=== PATIENT | male | born 1955 | race African-American/Black ===

== ENCOUNTER 2022-06-08 15:21 | Inpatient (IN) | payer MEDICARE, MEDICAID ==
[~2022-06-08] VITALS: Ht 170.2 cm; Wt 56.7 kg
[~2022-06-08 15:21] MED LIST: AMLO10TA4 PO; CLOP-31 PO; COR12 PO; ESCI10TA PO; FOLI-43 PO; KEPP500 PO; OMEP40CA PO; PRAV40TA58 PO
[2022-06-08] MEDS ORDERED: MORPHINE SULFATE 4 MG/ML CPJ (NOT FOR IM USE) IV STA (15:39)
[2022-06-08] MEDS ORDERED: ONDANSETRON HCL 4MG/2ML INJ IV STA (15:39)
[2022-06-08] MEDS ORDERED: SODIUM CHLORIDE 0.9% 1,000 ML IV ONE (15:45)
[2022-06-08 16:45] LABS: BASOPHILS % 1.2 % (0.0-2.0); HEMATOCRIT. 27.7 % (42.0-52.0); HEMOGLOBIN. 9.4 g/dL (14.0-18.0); LYMPHOCYTES % 10.3 % (20.0-50.0); MEAN CORPUSCULAR HEMOGLOBIN 31.7 pg (28.0-32.0); MEAN CORPUSCULAR VOLUME 93.9 fL (80.0-94.0); MEAN PLATELET VOLUME 9.3 fl (7.4-10.4); MONOCYTES % 7.7 % (2.0-8.0); NEUTROPHILS % 77.8 % (40.0-76.0); PLATELET 129 x1000/uL (130-400); RED BLOOD CELL COUNT 2.95 mill/uL (4.7-6.1); RED CELL DISTRIBUTION WIDTH 16.3 % (11.6-14.6)
[2022-06-08 16:54] LABS: INR 1.2; PROTHROMBIN TIME 12.7 sec (9.6-11.0)
[2022-06-08 16:56] LABS: CHLORIDE 100 mEq/L (98-107)
[2022-06-08] MEDS ORDERED: NITROGLYCERIN OINT 1GM/INCH UDPKT TD ONE (17:45)
[2022-06-08] MEDS ORDERED: FUROSEMIDE 40MG/4ML VIAL IV ONE (17:45)
[2022-06-08] MEDS ORDERED: NA PHOS,M-B/NA PHOS,DI-BA ENEMA 118ML PR PRN (22:45)
[2022-06-08] MEDS ORDERED: CLONIDINE 0.1MG TABLET PO PRN (22:45)
[2022-06-08] MEDS ORDERED: NITROGLYCERIN 0.4MG TABLET SL SL PRN (22:45)
[2022-06-08] MEDS ORDERED: MAGNESIUM/ALUMINUM HYDROXIDE/SIMETHICONE 30ML UDC PO PRN (22:45)
[2022-06-08] MEDS ORDERED: ACETAMINOPHEN 325MG TABLET PO PRN ×2 (22:45)
[2022-06-08] MEDS ORDERED: IPRATROPIUM/ALBUTEROL 0.5-3(2.5)MG/3ML NEB NEB PRN (22:45)
[2022-06-08] MEDS ORDERED: ZOLPIDEM TARTRATE 5MG TABLET PO PRN (22:45)
[2022-06-08] MEDS ORDERED: ONDANSETRON HCL 4MG/2ML INJ IV PRN (22:45)
[2022-06-08] MEDS ORDERED: TRAMADOL 50MG TABLET PO PRN (22:45)
[2022-06-08] MEDS ORDERED: GUAIFENESIN 200MG/10ML SUGAR FREE UDC PO PRN (22:45)
[2022-06-09] VITALS (9 sets, daily range): BP systolic 112–143; BP diastolic 55–80
[2022-06-09 06:17] LABS: HEMATOCRIT. 27.4 % (42.0-52.0); HEMOGLOBIN. 9.1 g/dL (14.0-18.0); MEAN CORPUSCULAR HEMOGLOBIN 31.6 pg (28.0-32.0); MEAN PLATELET VOLUME 9.4 fl (7.4-10.4); PLATELET 129 x1000/uL (130-400); RED BLOOD CELL COUNT 2.88 mill/uL (4.7-6.1); RED CELL DISTRIBUTION WIDTH 16.4 % (11.6-14.6)
[2022-06-09] MEDS: CARVEDILOL 3.125 MG TABLET PO SCH ×2 (06:19→17:50)
[2022-06-09 06:21] LABS: CHLORIDE 101 mEq/L (98-107)
[2022-06-09 06:41] LABS: CREATINE KINASE MB FRACTION 1.3 ng/mL (0.5-3.6)
[2022-06-09] MEDS: SEVELAMER CARBONATE 800 MG TABLET PO SCH ×3 (08:22→17:49)
[2022-06-09] MEDS: ENOXAPARIN 30MG/0.3ML SYR SUBCUT SCH (09:22)
[2022-06-09] MEDS: AMLODIPINE 10MG TABLET PO SCH (09:22)
[2022-06-09] MEDS: FAMOTIDINE 20MG TABLET PO SCH (09:22)
[2022-06-09] MEDS: LEVETIRACETAM 500MG TABLET PO SCH ×2 (09:22→20:43)
[2022-06-09] MEDS: CLOPIDOGREL 75MG TABLET PO SCH (09:22)
[2022-06-09 10:53] LABS: HEPATITIS B SURFACE ANTIGEN NEGATIVE
[2022-06-09] MEDS ORDERED: NALOXONE HCL 0.4MG/ML VIAL IV PRN (14:15)
[2022-06-09 14:43] LABS: PLATELET ESTIMATE NORMAL
[2022-06-10] VITALS (7 sets, daily range): BP systolic 103–135; BP diastolic 53–84
[2022-06-10] MEDS: CARVEDILOL 3.125 MG TABLET PO SCH ×2 (05:27→17:49)
[2022-06-10] MEDS: SEVELAMER CARBONATE 800 MG TABLET PO SCH ×3 (08:49→17:51)
[2022-06-10] MEDS: LEVETIRACETAM 500MG TABLET PO SCH ×2 (09:13→20:50)
[2022-06-10] MEDS: AMLODIPINE 10MG TABLET PO SCH (09:13)
[2022-06-10] MEDS: CLOPIDOGREL 75MG TABLET PO SCH (09:13)
[2022-06-10] MEDS: DOCUSATE SODIUM 100MG CAPSULE PO PRN ×2 (09:14→17:48)
[2022-06-10] MEDS: FAMOTIDINE 20MG TABLET PO SCH (09:14)
[2022-06-10] MEDS: ENOXAPARIN 30MG/0.3ML SYR SUBCUT SCH (09:14)
[2022-06-10] MEDS: CARVEDILOL 12.5MG TABLET PO SCH (20:50)
[2022-06-10] MEDS ORDERED: METOPROLOL TARTRATE 25MG TABLET PO SCH (21:00)
[2022-06-11] VITALS (9 sets, daily range): BP systolic 117–144; BP diastolic 55–88
[2022-06-11 06:51] LABS: BASOPHILS % 1.2 % (0.0-2.0); EOSINOPHILS % 2.4 % (0.0-5.0); HEMATOCRIT. 26.3 % (42.0-52.0); HEMOGLOBIN. 8.7 g/dL (14.0-18.0); LYMPHOCYTES % 14.1 % (20.0-50.0); MEAN CORPUSCULAR HEMOGLOBIN 31.3 pg (28.0-32.0); MEAN PLATELET VOLUME 9.1 fl (7.4-10.4); MONOCYTES % 8.1 % (2.0-8.0); NEUTROPHILS % 74.2 % (40.0-76.0); PLATELET 118 x1000/uL (130-400)
[2022-06-11] MEDS: SEVELAMER CARBONATE 800 MG TABLET PO SCH ×3 (08:32→17:17)
[2022-06-11] MEDS: FAMOTIDINE 20MG TABLET PO SCH (08:32)
[2022-06-11] MEDS: ENOXAPARIN 30MG/0.3ML SYR SUBCUT SCH (08:34)
[2022-06-11] MEDS: AMLODIPINE 10MG TABLET PO SCH (08:35)
[2022-06-11] MEDS: CLOPIDOGREL 75MG TABLET PO SCH (08:37)
[2022-06-11] MEDS: LEVETIRACETAM 500MG TABLET PO SCH ×2 (08:37→22:39)
[2022-06-11] MEDS: CARVEDILOL 12.5MG TABLET PO SCH ×2 (08:37→22:39)
[2022-06-12] VITALS: BP 120/65
[2022-06-12 04:00] VITALS: BP 128/60
[2022-06-12] MEDS: CLOPIDOGREL 75MG TABLET PO SCH (08:42)
[2022-06-12] MEDS: LEVETIRACETAM 500MG TABLET PO SCH (08:42)
[2022-06-12] MEDS: FAMOTIDINE 20MG TABLET PO SCH (08:42)
[2022-06-12] MEDS: AMLODIPINE 10MG TABLET PO SCH (08:43)
[2022-06-12] MEDS: SEVELAMER CARBONATE 800 MG TABLET PO SCH (08:43)
[2022-06-12] MEDS: CARVEDILOL 12.5MG TABLET PO SCH (08:43)
[2022-06-12] MEDS: ENOXAPARIN 30MG/0.3ML SYR SUBCUT SCH (08:44)
[2022-06-12 10:00] VITALS: BP 115/49
[2022-06-12] MEDS ORDERED: ATORVASTATIN CALCIUM 40MG TABLET PO SCH (21:00)
== END 2022-06-12 17:45 | disposition home or self-care (01) | DRG 280 ==
LOC: ER 15:21 → MICUSO 21:18 → EDBEDREQ 21:34 → EDBEDREQTM 21:34 → SUPCPDRO 22:36 → 7WST 06-09 13:28
PROVIDERS: ADMIT Internal Medicine; ATTEND Internal Medicine
PROC: 5A1D70Z Performance of Urinary Filtration, Intermittent, Less than 6 Hours Per Day (ICD-10-PCS; 2022-06-09)
PROC: 5A1D70Z Performance of Urinary Filtration, Intermittent, Less than 6 Hours Per Day (ICD-10-PCS; principal; 2022-06-11)
DX: I13.2 Hypertensive heart and chronic kidney disease with heart failure and with stage 5 chronic kidney disease, or end stage renal disease (principal); I50.33 Acute on chronic diastolic (congestive) heart failure; I21.A1 Myocardial infarction type 2; N18.6 End stage renal disease; J96.01 Acute respiratory failure with hypoxia; N12 Tubulo-interstitial nephritis, not specified as acute or chronic; E44.0 Moderate protein-calorie malnutrition; Z68.1 Body mass index [BMI] 19.9 or less, adult; E11.22 Type 2 diabetes mellitus with diabetic chronic kidney disease; D69.6 Thrombocytopenia, unspecified; E78.5 Hyperlipidemia, unspecified; I27.20 Pulmonary hypertension, unspecified; Z20.822 Contact with and (suspected) exposure to COVID-19; F32.A Depression, unspecified; Z99.2 Dependence on renal dialysis; Z95.810 Presence of automatic (implantable) cardiac defibrillator; Z90.5 Acquired absence of kidney; Z86.73 Personal history of transient ischemic attack (TIA), and cerebral infarction without residual deficits; Z79.02 Long term (current) use of antithrombotics/antiplatelets; Z79.899 Other long term (current) drug therapy; Z82.49 Family history of ischemic heart disease and other diseases of the circulatory system; Z83.3 Family history of diabetes mellitus; Z87.891 Personal history of nicotine dependence; Z80.9 Family history of malignant neoplasm, unspecified
CPT/HCPCS: 36415; 71045; 74176; 80048; 80053; 80061; 82550; 82553; 82607; 82746; 83036; 83540; 83550; 83735; 83880; 84100; 84439; 84443; 84484; 85025; 86705; 86709; 86803; 87340; 87426; 90935; 93005; 93306; 93970; 97110; 97162; 97165; 97530; 99285; J1650; J1940; J2270; J2405; J7030